=== PATIENT | female | born 1975 | race Hispanic/Latino ===

== ENCOUNTER 2020-11-20 23:03 | Emergency (ER) | payer OTHER ==
[~2020-11-20] VITALS: Ht 154.9 cm; Wt 73.5 kg
[2020-11-20] MEDS ORDERED: KETOROLAC TROMETHAMINE 30 MG/ML VIAL IV STA (23:19)
[2020-11-20 23:34] LABS: BASOPHILS % 0.7 % (0.0-1.0); EOSINOPHILS % 0.9 % (0.0-6.0); HEMATOCRIT 31.4 % (34.2-44.1); HEMOGLOBIN 10.9 g/dL (12.0-16.0); LYMPHOCYTES # (AUTO) 1.1 (1.0-3.2); LYMPHOCYTES % 25.8 % (18.0-39.1); MEAN CORPUSCULAR HEMOGLOBIN 29.9 pg (28-32); MEAN CORPUSCULAR HGB CONC 34.7 g/dL (31-35); MONOCYTES # (AUTO) 0.4 (0.2-0.8); MONOCYTES % 9.7 % (4.4-11.3); NEUTROPHILS # (AUTO) 2.8 (2.1-6.9); NEUTROPHILS % 62.7 % (38.7-80.0); PLATELET COUNT 206 x10e3/uL (140-360); RED BLOOD COUNT 3.65 x10e6/uL (3.6-5.1)
[2020-11-20 23:53] LABS: ALANINE AMINOTRANSFERASE 40 IU/L (0-55); ALBUMIN 3.6 g/dL (3.5-5.0); ALBUMIN/GLOBULIN RATIO 0.8 (0.8-2.0); ALKALINE PHOSPHATASE 65 IU/L (40-150); ANION GAP 14.6 mmol/L (8-16); BLOOD UREA NITROGEN 10 mg/dL (7-26); BUN/CREATININE RATIO 13 (6-25); CALCIUM 8.7 mg/dL (8.4-10.2); CARBON DIOXIDE 25 mmol/L (22-29); CHLORIDE 102 mmol/L (98-107); CREATINE KINASE 57 IU/L (29-168); CREATININE, SERUM 0.78 mg/dL (0.57-1.11); EST GLOMERULAR FILTRATION RATE > 60 ML/MIN (60-); GLUCOSE 148 mg/dL (74-118); POTASSIUM 3.6 mmol/L (3.5-5.1); SODIUM 138 mmol/L (136-145)
[2020-11-21] MEDS ORDERED: HYDROCODON-ACE1 EAC9 PO (02:26)
[2020-11-21] MEDS ORDERED: HYDROCODONE/APAP 10MG-325MG TAB ONE (03:27)
[2020-11-21] MEDS ORDERED: HYDROCODONE/APAP 10MG-325MG TAB PO ONE (03:30)
[2020-11-21] MEDS ORDERED: IOPAMIDOL 370 MG/ML 200 ML INFUS..BTL INJ ONE (06:23)
[2020-11-21] MEDS ORDERED: SODIUM CHLORIDE 0.9% 50ML 50 ML ONE (06:24)
== END 2020-11-21 02:45 | disposition home or self-care (01) ==
LOC: ER 23:17
DX: R07.89 Other chest pain (principal); C79.62 Secondary malignant neoplasm of left ovary
CPT/HCPCS: 36415; 71045; 71260; 80053; 82550; 82553; 84484; 85025; 85379; 99284; J1885; Q9967

== ENCOUNTER → 2020-11-20 | Outpatient (CLI) | payer OTHER ==
[~2020-11-20] MED LIST: HYDROCODON-ACE1 EAC9 PO
[2020-11-20 11:39] LABS: INR 1.01; PROTHROMBIN TIME 13.9 seconds (11.9-14.5)
[2020-11-20 11:40] LABS: PARTIAL THROMBOPLASTIN TIME 38.8 seconds (23.8-35.5)
== END ==
LOC: CT 10:47
PROVIDERS: ATTEND Radiology Vascular & Interventional Radiology
DX: Z85.43 Personal history of malignant neoplasm of ovary (principal)
CPT/HCPCS: 36415; 49180; 77012; 85014; 85049; 85610; 85730; 88112; 88305; 99152; 99153; U0002